=== PATIENT | female | born 1980 ===

== ENCOUNTER 2022-06-18 07:49 | Day surgery (SDC) | payer OTHER ==
[~2022-06-18] VITALS: Ht 162.6 cm; Wt 109.7 kg
[2022-06-18] MEDS ORDERED: BACL10 (09:26)
[2022-06-18] MEDS ORDERED: METF500 (09:26)
[2022-06-18] MEDS ORDERED: ESCI10 (09:26)
[2022-06-18] MEDS ORDERED: TRAM50 (09:27)
[2022-06-18] MEDS ORDERED: MOUNJARO5 MG/0.5 M (09:27)
== END 2022-06-18 13:05 | disposition home or self-care (01) ==
LOC: ORSCSDS 07:49
PROVIDERS: Internal Medicine Gastroenterology
PROC: 0DB98ZX Excision of Duodenum, Via Natural or Artificial Opening Endoscopic, Diagnostic (ICD-10-PCS; principal; 2022-06-18 10:00)
PROC: 0DBE8ZX Excision of Large Intestine, Via Natural or Artificial Opening Endoscopic, Diagnostic (ICD-10-PCS; principal; 2022-06-18 10:00)
PROC: 0DB78ZX Excision of Stomach, Pylorus, Via Natural or Artificial Opening Endoscopic, Diagnostic (ICD-10-PCS; principal; 2022-06-18 10:00)
DX: R19.7 Diarrhea, unspecified (principal); K21.9 Gastro-esophageal reflux disease without esophagitis; K31.7 Polyp of stomach and duodenum; K29.70 Gastritis, unspecified, without bleeding; K57.30 Diverticulosis of large intestine without perforation or abscess without bleeding; E11.9 Type 2 diabetes mellitus without complications; Z79.84 Long term (current) use of oral hypoglycemic drugs; Z79.899 Other long term (current) drug therapy; E66.01 Morbid (severe) obesity due to excess calories; Z68.41 Body mass index [BMI] 40.0-44.9, adult
CPT/HCPCS: 82947; 88305; 88342; J2001; J2250; J2405; J2704; J7120